=== PATIENT | female | born 2000 | race Hispanic/Latino ===

== ENCOUNTER 2024-10-08 20:20 | Emergency (ER) | payer SELFPAY ==
[~2024-10-08] VITALS: Ht 149.9 cm; Wt 80.7 kg
[~2024-10-08 20:20] MED LIST: CEFD300C3 PO; LACT1CAP58 PO; PREN1COM14 PO
--- NOTE | 2024-10-08 20:22 | NUR ---
UA CUP PROVIDED
[2024-10-08] MEDS: ondanSETRON 4MG INJ ONE (20:54)
[2024-10-08] MEDS: ondanSETRON 4MG INJ IVP ONE (20:54)
[2024-10-08] MEDS: 0.9%NACL 1000ML 1,000 ML IV STA (20:56)
[2024-10-08 21:03] VITALS: TEMP 97.1
[2024-10-08 21:06] LABS: BASOPHILS # (AUTO) 0.02 K/uL (0.00-0.20); BASOPHILS % (AUTO) 0.2 % (0.0-5.0); EOSINOPHILS # (AUTO) 0.25 K/uL (0.00-0.70); EOSINOPHILS % (AUTO) 2.7 % (0.0-8.0); HEMATOCRIT 41.4 % (36-48); IMMATURE GRANULOCYTE ABSOLUTE 0.03 K/uL (0-1); LYMPHOCYTES # (AUTO) 1.7 K/uL (1.0-4.8); LYMPHOCYTES % (AUTO) 18.2 % (21.0-51.0); MEAN CORPUSCULAR HEMOGLOBIN 31.1 pg (27.0-33.0); MEAN CORPUSCULAR HGB CONC 33.6 g/dL (32.0-36.0); MEAN CORPUSCULAR VOLUME 92.6 fL (79-99); MONOCYTES # (AUTO) 0.7 K/uL (0.1-1.0); MONOCYTES % (AUTO) 7.3 % (3.0-13.0); NEUTROPHILS # (AUTO) 6.6 K/uL (1.8-7.7); NEUTROPHILS % (AUTO) 71.3 % (40.0-77.0); PLATELET COUNT (AUTO) 292 K/uL (130-400); RED BLOOD CELL COUNT(AUTO) 4.47 MIL/uL (4.00-5.50); RED CELL DISTRIBUTION WIDTH 12.4 % (11.0-15.5); WHITE BLOOD COUNT (AUTO) 9.2 K/uL (4.8-10.8)
[2024-10-08 21:15] LABS: CREATININE 0.7 mg/dL (0.5-1.0); POTASSIUM 3.3 mmol/L (3.5-5.1)
--- NOTE | 2024-10-08 22:24 | HMCIMG ---
CT HEAD/BRAIN W/O CONTRAST HISTORY: Headaches COMPARISON: None TECHNIQUE: Multiple sequential axial images of the head were obtained from the base of the skull through vertex. Patient was not given contrast through intravenous route. FINDINGS: The ventricles and extraventricular CSF spaces are nondilated for patient's age. There is no midline shift, mass effect or herniation. No acute intracranial bleed is seen. Visualized portion of the paranasal sinuses are grossly within normal limits. IMPRESSION: 1. No acute intracranial bleed is seen. CT was performed with one or more following dose reduction techniques: automated exposure control, adjustment of the mA and kv according to patient's size, or use of a iterative reconstruction technique.
[2024-10-08 22:55] VITALS: BP 118/56; PULSE 71; RESP 18; O2SAT 96
--- NOTE | 2024-10-08 23:03 | ERN ---
ED Note History of Present Illness Stated Complaint: HEADACHE, VOMITING Chief Complaint: Headache Time Seen by MD: 20:23 Time Seen by Midlevel: 20:26 Dictation: 24-year-old female with no past medical history coming in complaining of a headache and right ear pain onset today. Patient states the headache is making her throw up. LMP 10/07/2024. Patient states he took Tylenol 1 hour ago and has not helped and started to come in and be evaluated. Patient states it is the worst headache that she has ever felt. Allergies: Coded Allergies: No Known Drug Allergies (Unverified Allergy, Unknown, 06/29/17) codeine (Unverified Allergy, Unknown, 10/08/24) Home Meds Active Scripts Cmb#95/Iron/FA/Dha ( + Dha Combo Pack) 1 Each Combo..pkg, 1 EACH PO DAILYBKFST, #90 COMB.PKG 3 Refills Prov:JOHN BAKER MD 06/30/17 Lactobacillus Rhamnosus GG (Culturelle) 1 Each Capsule, 1 EACH PO DAILY, #30 CAP Prov:JOHN BAKER MD 06/30/17 Cefdinir (Cefdinir) 300 Mg Capsule, 300 MG PO BID, #10 CAP Prov:JOHN BAKER MD 06/30/17 Past Medical History Past Medical History: No Pertinent History Surgical History: LMP: Oct 07, 2024 Review of System Dictation Constitutional: Negative for fever,chills, and weight loss Eyes: Negative for injury, pain,redness, and discharge ENT: Negative for injury,pain or swelling complaining of right ear pain Cardiovascular: Negative for chest pain, palpitations, and edema Respiratory: Negative for shortness of breath, cough, and wheezing, Abdomen/GI: Negative for abdominal pain, nausea, vomiting, diarrhea, and constipation Back: Negative for injury and pain : Negative for injury, bleeding and discharge MS/Extremity: Negative for injury and deformity Skin: Negative for rash, and discoloration Neuro: Positive for headache, no weakness, no numbness, no tingling, and seizure Psych: Negative for suicide ideation, homicidal ideation, and hallucinations Review of Systems: was completed Initial Vital Sign VS Vital Signs Date Time Temp Pulse Resp B/P (MAP) Pulse Ox O2 Delivery O2 Flow Rate FiO2 10/08/24 20:22 97.5 90 20 131/89 99 Room Air 10/08/24 20:24 0 21 Physical Exam Dictation General: awake, alert, NAD Head/Face: Normocephalic, atraumatic Eyes: PERRL, EOMI, vision at baseline ENT: oral cavity clear, left TM normal, right TM erythematous and bulging, no drainage no pain on pulling of the pinna Neck: Trachea midline, supple, no nuchal rigidity Cardiovascular: RRR, normal S1/S2, No MRGs, no JVD Respiratory: CTAB, no respiratory distress, No rales or wheezes Abdomen: Soft, non-tender, non-distended, normal bowel sounds, no guarding or rebound. Skin: Warm, dry, normal turgor, no rash MS/Extremity: Pulses equal, no cyanosis, neurovascular intact, FROM Neuro: COAx4, GCS 15, strength 5/5, CN 2-12 intact, normal cerebellar exam, normal gait, Psych: Normal behavior, mood, and affect normal Results (Laboratory/Radiology) Laboratory/Radiology Laboratory Tests Test 10/08/24 20:59 White Blood Count 9.2 K/uL (4.8-10.8) Red Blood Count 4.47 MIL/uL (4.00-5.50) Hemoglobin 13.9 g/dL (12.0-16.0) Hematocrit 41.4 % (36-48) Mean Corpuscular Volume 92.6 fL (79-99) Mean Corpuscular Hemoglobin 31.1 pg (27.0-33.0) Mean Corpuscular Hemoglobin Concent 33.6 g/dL (32.0-36.0) Red Cell Distribution Width 12.4 % (11.0-15.5) Platelet Count 292 K/uL (130-400) Mean Platelet Volume 10.1 fL (7.5-10.5) Immature Granulocyte % (Auto) 0.3 % (0-1) Neutrophils (%) (Auto) 71.3 % (40.0-77.0) Lymphocytes (%) (Auto) 18.2 % (21.0-51.0) L Monocytes (%) (Auto) 7.3 % (3.0-13.0) Eosinophils (%) (Auto) 2.7 % (0.0-8.0) Basophils (%) (Auto) 0.2 % (0.0-5.0) Neutrophils # (Auto) 6.6 K/uL (1.8-7.7) Lymphocytes # (Auto) 1.7 K/uL (1.0-4.8) Monocytes # (Auto) 0.7 K/uL (0.1-1.0) Eosinophils # (Auto) 0.25 K/uL (0.00-0.70) Basophils # (Auto) 0.02 K/uL (0.00-0.20) Absolute Immature Granulocyte (auto 0.03 K/uL (0-1) Nucleated Red Blood Cells 0.0 % (0.0-0.19) Sodium Level 142 mmol/L (136-145) Potassium Level 3.3 mmol/L (3.5-5.1) L Chloride Level 103 mmol/L (101-111) Carbon Dioxide Level 32 mmol/L (21-32) Blood Urea Nitrogen 10 mg/dL (7-18) Creatinine 0.7 mg/dL (0.5-1.0) Glomerular Filtration Rate Calc 122 mL/min (>90) Random Glucose 99 mg/dL (70-105) Total Calcium 9.6 mg/dL (8.5-10.1) Human Chorionic Gonadotropin, Quant 0 mIU/mL (0-5) Labs Reviewed?: Yes CT Scan Comment: [place] [address] IMAGING REPORT Signed PATIENT: AMY SOUZA MR#: [id number] : 2000 SEX: F AGE: 24 LOCATION: ED ORDER 47 STATUS: REG REPORT#: [id number] SERVICE 46 REASON: HEADACHE ORDERING PHYSICIAN: RANJEET AVERY NP PROCEDURE: HEAD WO - CT HEAD/BRAIN W/O CONTRAST CT HEAD/BRAIN W/O CONTRAST HISTORY: Headaches COMPARISON: None TECHNIQUE: Multiple sequential axial images of the head were obtained from the base of the skull through vertex. Patient was not given contrast through intravenous route. FINDINGS: The ventricles and extraventricular CSF spaces are nondilated for patient's age. There is no midline shift, mass effect or herniation. No acute intracranial bleed is seen. Visualized portion of the paranasal sinuses are grossly within normal limits. IMPRESSION: 1. No acute intracranial bleed is seen. CT was performed with one or more following dose reduction techniques: automated exposure control, adjustment of the mA and kv according to patient's size, or use of a iterative reconstruction technique. DICTATED BY: EAMON SANTIAGO MD DATE: 10/08/242217 ELECTRONICALLY SIGNED BY: EAMON SANTIAGO MD DATE: 10/08/242223 ED Course ED Course Orders Procedure Category Date Status Time Cbc With Differential LAB 10/08/24 Complete 20:47 Basic Metabolic Panel LAB 10/08/24 Complete 20:47 Hcg,Quantitative LAB 10/08/24 Complete 20:47 Ct Head/Brain W/O CT 10/08/24 Resulted Contrast 20:47 Ondansetron 4mg Inj PHA 10/08/24 Complete (Zofran 4mg Inj) 21:00 Ondansetron 4mg Inj PHA 10/08/24 Complete (Zofran 4mg Inj) 20:49 0.9%Nacl 1000ml (Ns PHA 10/08/24 In Process 1000ml) 20:53 Current Medications Medications (Trade) Dose Ordered Sig/Vianey Route PRN Reason Start Time Stop Time Status Last Admin Dose Admin Ondansetron HCl (zoFRAN 4MG INJ) 4 mg ONCE ONCE IVP 10/08/24 21:00 10/08/24 21:01 DC 10/08/24 20:54 Ondansetron HCl (zoFRAN 4MG INJ) 4 mg STK-MED ONCE .ROUTE 10/08/24 20:49 10/08/24 20:49 DC Sodium Chloride 1,000 ml @ 100 mls/hr Q10H STAT IV 10/08/24 20:53 10/09/24 06:52 10/08/24 20:56 Vital Signs Date Time Temp Pulse Resp B/P (MAP) Pulse Ox O2 Delivery O2 Flow Rate FiO2 10/08/24 22:55 71 18 118/56 96 Room Air* 0 10/08/24 21:41 64 20 115/53 97 Room Air* 0 10/08/24 21:03 97.2 66 18 118/56 98 Room Air* 0 21 12/14/24 20:24 97.9 84 14 131/89 98 Room Air* 0 21 10/08/24 20:22 97.5 90 20 131/89 99 Room Air Medical Decision Making MDM MDM: 24-year-old female with no past medical history coming in complaining of a headache and right ear pain onset today. Patient states the headache is making her throw up. LMP 10/07/2024. Patient states he took Tylenol 1 hour ago and has not helped and started to come in and be evaluated. Patient states it is the worst headache that she has ever felt. Denies having any fever, altered mental status.CBC shows no leukocytosis, no anemia, no thrombocytopenia. Chemistry shows hypokalemia at 3.3. No other electrolyte abnormality. CT scan of the head is normal. Discussed findings with patient. Educated patient that we will give her antibiotics for her ear infection and have patient follow up outpatient with PCP. Educated if any other symptoms worsen to return to the ER. Differential diagnosis: ICH, viral syndrome, sinusitis, influenza, COVID Rationale: Tests considered and ordered secondary to shared decision making include: Previous outside records reviewed: Old ER visits. Risk of complication and/or morbidity or mortality of patient management: None Medications-Per medication reconciliation Need for hospitalization: Patient does not meet criteria for hospitalization. Need for emergency major/minor surgery: No There are no social concerns with this patient. Prescription drug management Prescriptions will include symptomatic care Patient's prior external medical records from other ER visits were reviewed by me as indicated. Prior testing and results from previous visits were reviewed. Prior tests were taken into account with medical decision making and resource utilization, independent historian/historians were used to obtain complete medical history. I independently interpreted the test that were performed, results were reviewed by me and considered findings on radiology if ordered. Medical management and examination interpretation discussions were had by me with other qualified healthcare professionals as indicated for the patient's care. DX & DISP Disposition: Discharge Departure Impression: Primary Impression: Headache Additional Impression: Right otitis media Condition: Stable Scripts Amoxicillin/Potassium Clav (Amox Tr-K Clv 875-125 mg Tab) 875 Mg-125 Mg Tablet 1 EACH PO BID for 5 Days, #10 TAB 0 Refills Prov: RANJEET AVERY [employer] 10/08/24 Additional Instructions: Please follow up with PCP in 1-2 days. Take antibiotics as prescribed. Return to the ER if you develop any fever, nausea or vomiting despite taking the medication for nausea. Take Tylenol or Motrin [id number] for pain management. You can also take Mucinex or any [id number] decongestant. Referrals: SELF,REFERRAL (PCP) Time of Disposition: 23:08 I have reviewed the case, and I agree with, Diagnosis and Plan RANJEET AVERY NP Oct 08, 2024 23:03
[2024-10-08] MEDS ORDERED: AMOX1TAB16 PO (23:09)
== END 2024-10-08 23:18 | disposition home or self-care (01) ==
LOC: EDH 20:20
DX: R51.9 Headache, unspecified (principal); H66.91 Otitis media, unspecified, right ear; R10.2 Pelvic and perineal pain; Z88.5 Allergy status to narcotic agent
CPT/HCPCS: 99285; 96374; 70450; 80048; 84702; 85025; 36415; J2405